=== PATIENT | female | born 1960 | race Caucasian/White ===

== ENCOUNTER 2019-01-21 11:37 | Outpatient (REF) | payer BC, SELFPAY ==
--- NOTE | 2019-01-21 11:00 | PAPFT_PTH ---
PATIENT: Shanti George LOC: [facility] U#:[id number] AGE/SX: 58/F ROOM: RE01/21/[address]: Lexi Chris : 1960 BED: DIS: 01/21/2019 SPEC #: [id number] RECD: 01/22/19 13:17 STATUS: TJ RESharyn #: [id number] VARUN: 01/21/19 11:[address]: Lexi Chris DEPT: [facility] Cytology RECD BY: Arabella Butler Tissues: 1 - CX/ENDOCX FOR PAP SMEARS Procedures: PAP THIN PREP/UVM Screening HPV DNA PROBE Comments: [id number]
== END 2019-01-21 11:57 ==
LOC: NCHCN 11:37
PROVIDERS: PCP Family Medicine; Visit Provider Family Medicine
DX: Z00.00 Encounter for general adult medical examination without abnormal findings (principal); Z12.4 Encounter for screening for malignant neoplasm of cervix; Z01.419 Encounter for gynecological examination (general) (routine) without abnormal findings; Z11.51 Encounter for screening for human papillomavirus (HPV); R87.610 Atypical squamous cells of undetermined significance on cytologic smear of cervix (ASC-US)
CPT/HCPCS: 88142; 87624

== ENCOUNTER 2019-05-02 18:46 | Outpatient (REF) | payer BC, SELFPAY ==
[2019-05-02 21:35] LABS: HGB 14.5 g/dL (12.0-15.5); Mean Corpuscular Hemoglobin 29.4 pg (27.0-33.0); Mean Corpuscular Volume 89.1 fL (80-95); Mean Platelet Volume 10.8 fL (8.0-11.0); Platelet Count 338 x1000/uL (130-400); RBC 4.94 m/cumm (4.00-5.20); RBC Distribution Width 12.7 % (11.7-14.6); White Blood Cell Count 7.25 k/cumm (4.4-10.8)
[2019-05-02 21:58] LABS: Anion Gap 7.3 mmol/L (3-11); BUN 12 mg/dL (7-18); CO2 29.7 mmol/L (21.0-32.0); CREATININE 0.62 mg/dL (0.55-1.02); Calcium 9.9 mg/dL (8.5-10.1); Chloride 104 mmol/L (98-107); Glucose 94 mg/dL (70-100); Potassium 4.4 mmol/L (3.5-5.1); Sodium 141 mmol/L (136-145); TSH (W/Ref FT4) 2.59 uIU/mL (0.36-3.74)
== END 2019-05-02 19:06 ==
LOC: NCHCN 18:46
PROVIDERS: PCP Family Medicine; Visit Provider Nurse Practitioner Family
DX: R42 Dizziness and giddiness (principal)
CPT/HCPCS: 80048; 85027; 84443

== ENCOUNTER 2019-05-09 09:30 | Outpatient (CLI) | payer BC, SELFPAY | END 2019-05-09 09:50 | PROVIDERS: PCP Family Medicine; Visit Provider Nurse Practitioner Family | DX: I49.1 Atrial premature depolarization (principal) | CPT/HCPCS: 93225 ==

== ENCOUNTER 2019-05-13 07:33 | Outpatient (CLI) | payer BC, SELFPAY ==
--- NOTE | 2019-05-13 08:25 | W.HOLTRPT ---
Date of service: 05/13/19 Time of Service: 08:25 Holter Monitor Report Holter Monitor Note: Is a 48-hour Holter monitor ordered to evaluate for PACs. ?The patient was in normal sinus rhythm for the majority of the recording time. ?The patient had no episodes of supraventricular tachycardia. ?The patient had rare (less than 1%) premature atrial contractions and no runs of more than one in a row. ?There were no episodes of ventricular tachycardia. ?There were 5 single ventricular ectopic beats. ?There were no episodes of atrial fibrillation, no pauses greater than 3 seconds and no high degree heart block.
== END 2019-05-13 07:53 ==
PROVIDERS: PCP Family Medicine; Visit Provider Family Medicine
DX: I49.1 Atrial premature depolarization (principal)
CPT/HCPCS: 93226

== ENCOUNTER 2019-08-08 10:05 | Outpatient (CLI) | payer BC, SELFPAY ==
--- NOTE | 2019-08-08 | DI.RAD_ITS ---
EXAM: XR CLAVICLE RT INDICATION: LUMP R22.9. COMPARISON: No exams were available for comparison TECHNIQUE: 2D digital imaging was performed. FINDINGS: No fracture or dislocation is seen. There is minimal spurring at the AC joint and glenoid. IMPRESSION: Negative right clavicle DATA REPOSITORY: RADIATION DOSE DELIVERED:
== END 2019-08-08 10:25 ==
PROVIDERS: PCP Family Medicine; Visit Provider Nurse Practitioner Family
DX: R22.31 Localized swelling, mass and lump, right upper limb (principal); M25.711 Osteophyte, right shoulder
CPT/HCPCS: 73000

== ENCOUNTER 2019-09-30 01:47 | Outpatient (CLI) | payer BC, SELFPAY ==
--- NOTE | 2019-09-30 | DI.MRI_ITS ---
EXAM: MR CHEST WO/W CLINICAL HISTORY: LOCALIZED SWELLING, LUMP RT CLAVICLE,R22.1 TECHNIQUE: T1 and STIR or axial, coronal and sagittal sequences and pre and post gadolinium T T1 fat -suppressed axial, coronal and sagittal sequences performed. The exam was performed with a large fi eld of view which includes the entire clavicle COMPARISON: XR CLAVICLE RT from 08/08/2019 FINDINGS: There is some fluid around the right sternoclavicular joint. The bony signal is normal. There is n o evidence of a discrete mass. There is some enhancement around the right sternoclavicular joint in the area of the fluid. Findings could be infectious or inflammatory. No adenopathy is seen. The thyroid is unremarkable. The spine is unremarkable. IMPRESSION: Fluid mainly anterior to the right sternoclavicular joint with some enhancement post gadolinium. Fin dings could be infectious or inflammatory. No mass or abnormal bony signal is seen.
[2019-09-30] MEDS: Normal Saline Flush 10 ML SYR IVP (09:11)
[2019-09-30] MEDS: Gadoterate meglumine 20 ML VIAL 11 ML IVP (09:11)
== END 2019-09-30 02:07 ==
PROVIDERS: PCP Family Medicine; Visit Provider Family Medicine
DX: R22.31 Localized swelling, mass and lump, right upper limb (principal); M25.411 Effusion, right shoulder
CPT/HCPCS: 71552

== ENCOUNTER 2020-01-16 09:00 | Outpatient (REF) | payer BC, SELFPAY ==
[2020-01-16 21:21] LABS: ALT 21 U/L (14-59); AST 18 U/L (15-37); Alkaline Phosphatase 42 U/L (46-116); Anion Gap 5.8 mmol/L (3-11); BUN 15 mg/dL (7-18); Bilirubin, Total 0.3 mg/dL (0.2-1.0); CO2 28.2 mmol/L (21.0-32.0); CREATININE 0.67 mg/dL (0.55-1.02); Calcium 9.4 mg/dL (8.5-10.1); Calculated LDL 142 mg/dL (<100); Chloride 107 mmol/L (98-107); Cholesterol 249 mg/dL (<200); Glucose 95 mg/dL (74-106); HDL Cholesterol 94 mg/dL (40-60); Potassium 5.7 mmol/L (3.5-5.1); Sodium 141 mmol/L (136-145); Total Protein 6.9 g/dL (6.4-8.2); Triglyceride 67 mg/dL (<150)
[2020-01-16 21:27] LABS: Albumin 3.9 g/dL (3.4-5.0)
== END 2020-01-16 09:20 ==
LOC: NCHCN 09:00
PROVIDERS: PCP Family Medicine; Visit Provider Family Medicine
DX: Z00.00 Encounter for general adult medical examination without abnormal findings (principal); Z13.228 Encounter for screening for other metabolic disorders; Z13.220 Encounter for screening for lipoid disorders
CPT/HCPCS: 80053; 80061

== ENCOUNTER 2020-01-23 15:00 | Outpatient (REF) | payer BC, SELFPAY ==
--- NOTE | 2020-01-23 14:15 | PAPFT_PTH ---
PATIENT: Shanti Georeg [facility] U[id number] AGE/SX: 59/F ROOM: RE01/23/[address]: Lexi Chris : 1960 BED: DIS: 01/23/2020 SPEC #: [id number] RECD: 01/24/20 13:02 STATUS: TJ REQ #: [id number] VARUN: 01/23/20 14:[address]: Lexi Chris DEPT: [facility]CLUD[facility] Cytology RECD BY: Arabella Butler Tissues: 1 - CX/ENDOCX FOR PAP SMEARS Procedures: PAP THIN PREP/UVM Screening HPV DNA PROBE Comments: [id number]
== END 2020-01-23 15:20 ==
LOC: NCHCN 15:00
PROVIDERS: PCP Family Medicine; Visit Provider Family Medicine
DX: Z12.4 Encounter for screening for malignant neoplasm of cervix (principal); Z11.51 Encounter for screening for human papillomavirus (HPV)
CPT/HCPCS: 88142; 87624

== ENCOUNTER 2021-01-21 10:06 | Outpatient (REF) | payer BC, SELFPAY ==
[2021-01-21 13:19] LABS: HCT 44.7 % (36.0-46.0); HGB 14.9 g/dL (11.2-15.7); MCHC 33.3 % (32.0-36.0); MCV 89.9 fL (80-95); MPV 10.8 fL (8.0-11.0); Platelet Count 310 10^3/uL (130-400); RBC 4.97 10^6/uL (3.93-5.22); RDW 12.4 % (11.7-14.6); RDW-SD 41.1 fL; WBC 5.05 10^3/uL (4.4-10.8)
[2021-01-21 14:11] LABS: ALT 21 U/L (14-59); AST 18 U/L (15-37); Albumin 4.2 g/dL (3.4-5.0); Alkaline Phosphatase 45 U/L (46-116); Anion Gap 7.1 mmol/L (3-11); BUN 15 mg/dL (7-18); Bilirubin, Total 0.4 mg/dL (0.2-1.0); CO2 28.9 mmol/L (21.0-32.0); CREATININE 0.7 mg/dL (0.55-1.02); Calculated LDL 141 mg/dL (<100); Chloride 106 mmol/L (98-107); Cholesterol 258 mg/dL (<200); Glucose 91 mg/dL (74-106); HDL Cholesterol 107 mg/dL (40-60); Potassium 5.4 mmol/L (3.5-5.1); Sodium 142 mmol/L (136-145); Total Protein 7.4 g/dL (6.4-8.2); Triglyceride 50 mg/dL (<150)
== END 2021-01-21 10:07 | disposition home or self-care (01) ==
LOC: NCHCN 10:06
PROVIDERS: PCP Family Medicine; Visit Provider Family Medicine
DX: Z00.00 Encounter for general adult medical examination without abnormal findings (principal); R42 Dizziness and giddiness; I73.00 Raynaud's syndrome without gangrene
CPT/HCPCS: 80053; 80061; 85027

== ENCOUNTER 2022-01-20 17:05 | Outpatient (REF) | payer BC, SELFPAY ==
[2022-01-20 21:04] LABS: Bilirubin Negative (Negative); Blood Trace-lysed (Negative); Clarity Clear (Clear); Glucose Negative (Negative); Ketones Negative (Negative); Leukocyte Esterase Trace (Negative); Nitrite Negative (Negative); Specific Gravity >= 1.030 (1.005-1.025); Urobilinogen 0.2 EU/dL (Up TO 0.2); pH 5.5 (5-8)
[2022-01-20 21:21] LABS: Bacteria Rare HPF (Negative); C & S Indicated? Yes; Casts Negative LPF (Negative); Crystals Negative HPF (Negative); Epithelial Cells Rare HPF (Negative); Mucus Negative (Negative)
== END 2022-01-20 17:06 | disposition home or self-care (01) ==
LOC: LBN 17:05
PROVIDERS: PCP Family Medicine; Visit Provider Family Medicine
DX: R30.0 Dysuria (principal)
CPT/HCPCS: 81003; 81015; 87086

== ENCOUNTER 2022-01-28 14:34 | Outpatient (REF) | payer BC, SELFPAY ==
[2022-01-28 16:16] LABS: ALT 26 U/L (14-59); AST 31 U/L (15-37); Albumin 4.3 g/dL (3.4-5.0); Alkaline Phosphatase 48 U/L (46-116); Anion Gap 8.8 mmol/L (3-11); BUN 12 mg/dL (7-18); Bilirubin, Total 0.3 mg/dL (0.2-1.0); CO2 30.2 mmol/L (21.0-32.0); CREATININE 0.6 mg/dL (0.55-1.02); Calcium 9.6 mg/dL (8.5-10.1); Calculated LDL 127 mg/dL (<100); Chloride 103 mmol/L (98-107); Cholesterol 260 mg/dL (<200); Glucose 87 mg/dL (74-106); HDL Cholesterol 104 mg/dL (40-60); Magnesium 2.2 mg/dL (1.8-2.4); Potassium 5.2 mmol/L (3.5-5.1); Sodium 142 mmol/L (136-145); TSH (W/Ref FT4) 2.43 uIU/mL (0.36-3.74); Total Protein 8.3 g/dL (6.4-8.2); Triglyceride 145 mg/dL (<150)
[2022-01-31 05:46] LABS: Vitamin D 25 Total 51.1 ng/mL (30-100)
== END 2022-01-28 14:35 | disposition home or self-care (01) ==
LOC: NCHCN 14:34
PROVIDERS: PCP Family Medicine; Visit Provider Family Medicine
DX: Z00.00 Encounter for general adult medical examination without abnormal findings (principal); F51.04 Psychophysiologic insomnia
CPT/HCPCS: 80053; 80061; 82306; 83735; 84443

== ENCOUNTER 2022-10-13 14:49 | Outpatient (CLI) | payer BC, SELFPAY ==
--- NOTE | 2022-10-13 11:10 | DI.RAD_ITS ---
Exam(s) XR CHEST 2V PA LATERAL EXAM: XR CHEST 2V PA LATERAL CLINICAL HISTORY: NEW WHEEZE,R06.2 TECHNIQUE: 2D digital imaging was performed of the chest. Two images were obtained. PA and lateral views were obtained. COMPARISON: No exams were available for comparison FINDINGS: MEDIASTINUM: Normal. HEART: Normal. PULMONARY VASCULATURE: Normal. LUNGS: Clear. PLEURAL SPACE: No pleural effusion or pneumothorax. BONE:Within normal limits for the patient's age. OTHER FINDINGS:Normal. IMPRESSION: No acute pulmonary findings. DATA REPOSITORY: RADIATION DOSE DELIVERED:
== END 2022-10-13 15:09 ==
LOC: DI 14:49
PROVIDERS: PCP Family Medicine; Visit Provider Physician Assistant Medical
DX: R06.2 Wheezing (principal)
CPT/HCPCS: 71046

== ENCOUNTER 2024-03-11 08:17 | Outpatient (REF) | payer BC, SELFPAY ==
--- NOTE | 2024-03-11 08:00 | PAPFT_PTH ---
PATIENT: Shanti George LOC: [facility] U#:[id number] AGE/SX: 63/F ROOM: RE03/11/[address]: Bety Valdez DO : 1960 BED: DIS: 03/11/2024 SPEC #: [id number] RECD: 03/11/24 13:24 STATUS: TJ REQ #: [id number] VARUN: 03/11/24 08:[address]: Bety Valdez DEPT: [facility] Cytology RECD BY: Arabella Butler ENTERED: 03/11/24 13:24 SP TYPE: PAPFT OTHR DR: Lexi Chris Tissues: 1 - CX/ENDOCX FOR PAP SMEARS Procedures: PAP THIN PREP/[facility] Screening HPV DNA PROBE Comments: [id number] (HPV 16 & 18/45)
== END 2024-03-11 08:18 | disposition home or self-care (01) ==
LOC: LBN 08:17
PROVIDERS: PCP Family Medicine; Visit Provider Obstetrics & Gynecology
DX: Z01.419 Encounter for gynecological examination (general) (routine) without abnormal findings (principal); N95.2 Postmenopausal atrophic vaginitis
CPT/HCPCS: 88142; 87624

== ENCOUNTER 2024-03-14 02:24 | Outpatient (CLI) | payer BC, SELFPAY ==
--- NOTE | 2024-03-14 06:15 | DI.DEXA_ITS ---
Exam(s) XR DEXA BONE DENSITY W/WO ADRIAN EXAM: XR DEXA BONE DENSITY W/WO ADRIAN CLINICAL HISTORY: menopausal and female climacteric states,evaluate bone density,n95.1 TECHNIQUE: COMPARISON: No exams were available for comparison FINDINGS: Lateral Spine Image: Unremarkable. No compression deformities identified. Left hip: Total T-Score: -0.3 Total Z-Score: 0.8 T- and Z-scores: Within normal limits. Lumbar Spine: Total T-Score: -1.4 Total Z-Score: 0.2 T- and Z-scores: Findings are consistent with osteopenia. There is no evidence of osteoporosis. IMPRESSION: No evidence of osteoporosis.
== END 2024-03-14 02:44 ==
LOC: DI 02:24
PROVIDERS: PCP Family Medicine; Visit Provider Obstetrics & Gynecology
DX: N95.1 Menopausal and female climacteric states (principal); Z13.820 Encounter for screening for osteoporosis
CPT/HCPCS: 77080

== ENCOUNTER 2024-03-14 02:57 | Outpatient (CLI) | payer BC, SELFPAY ==
[2024-03-14 07:54] LABS: Abs Immature Grans 0.01 10^3/uL (0.0-0.06); Absolute Basophil Count 0.07 10^3/uL (0.0-0.2); Absolute Eosinophil Count 0.26 10^3/uL (0.0-0.7); Absolute Lymphocyte Count 1.79 10^3/uL (1.2-3.4); Absolute Monocyte Count 0.44 10^3/uL (0.1-0.8); Absolute Neutrophil Count 2.77 10^3/uL (1.2-6.7); Basophils % 1.3 %; Eosinophils % 4.9 %; HCT 42.9 % (36.0-46.0); HGB 14.3 g/dL (11.2-15.7); Immature Grans % 0.2 %; Lymphocytes % 33.5 %; MCH 29.9 pg (27.0-33.0); MCHC 33.3 % (32.0-36.0); MCV 90 fL (80-95); MPV 10.6 fL (8.0-11.0); Monocytes % 8.2 %; Neutrophils % 51.9 %; Platelet Count 279 10^3/uL (130-400); RBC 4.79 10^6/uL (3.93-5.22); RDW 12.4 % (11.7-14.6); RDW-SD 40.9 fL; WBC 5.34 10^3/uL (4.4-10.8)
[2024-03-14 08:38] LABS: ALT 23 U/L (14-59); AST 18 U/L (15-37); Albumin 3.9 g/dL (3.4-5.0); Alkaline Phosphatase 49 U/L (46-116); Anion Gap 5.7 mmol/L (3-11); BUN 16 mg/dL (7-18); CO2 30.3 mmol/L (21.0-32.0); CREATININE 0.7 mg/dL (0.55-1.02); Calcium 9.3 mg/dL (8.5-10.1); Calculated LDL 122 mg/dL (<100); Chloride 105 mmol/L (98-107); Cholesterol 251 mg/dL (<200); Estimated GFR 97.12 (mL/min/1.73m2); Glucose 93 mg/dL (74-106); HDL Cholesterol 106 mg/dL (40-60); Potassium 4.4 mmol/L (3.5-5.1); Sodium 141 mmol/L (136-145); Total Protein 7.4 g/dL (6.4-8.2); Triglyceride 117 mg/dL (<150)
== END 2024-03-14 02:58 | disposition home or self-care (01) ==
LOC: LBO 02:58
PROVIDERS: PCP Family Medicine; Visit Provider Obstetrics & Gynecology
DX: N95.1 Menopausal and female climacteric states (principal); L65.9 Nonscarring hair loss, unspecified
CPT/HCPCS: 36415; 80053; 80061; 84443; 85025

== ENCOUNTER 2025-01-01 11:29 | Outpatient (CLI) | payer BC, SELFPAY ==
--- NOTE | 2025-01-01 11:00 | DI.RAD_ITS ---
Exam(s) XR ELBOW RT COMPLETE EXAM: XR ELBOW RT COMPLETE CLINICAL HISTORY: pain. TECHNIQUE: 2D digital imaging was performed of the left elbow. Three images were obtained. AP, lateral and radiocapitellar views were obtained. COMPARISON: No exams were available for comparison FINDINGS: BONES: No acute fracture is present. No bony destructive lesion is seen. JOINTS: The elbow is normally aligned. No joint effusion is seen. SOFT TISSUE: There is a well corticated osseous density adjacent to the lateral epicondyle which is chronic. IMPRESSION: No acute abnormality. DATA REPOSITORY: RADIATION DOSE DELIVERED:
== END 2025-01-01 11:30 | disposition home or self-care (01) ==
LOC: DIORS 11:29
PROVIDERS: PCP Family Medicine; Visit Provider Physician Assistant
DX: M25.521 Pain in right elbow (principal)
CPT/HCPCS: 73080

== ENCOUNTER 2025-04-15 15:06 | Outpatient (CLI) | payer BC, SELFPAY ==
[2025-04-15 16:11] LABS: TSH (W/Ref FT4) 3.76 uIU/mL (0.36-3.74)
== END 2025-04-15 15:07 | disposition home or self-care (01) ==
LOC: LBO 15:07
PROVIDERS: PCP Family Medicine; Visit Provider Obstetrics & Gynecology
DX: L65.9 Nonscarring hair loss, unspecified (principal)
CPT/HCPCS: 36415; 84439; 84443

== ENCOUNTER → 2025-05-02 03:08 | Outpatient (CLI) | payer BC, SELFPAY ==
--- NOTE | 2025-05-02 07:30 | DI.MAMMO_ITS ---
Exam(s) MAMMO SCREENING EXAM: MAMMO SCREENING CLINICAL HISTORY: screening,Z12.39. TECHNIQUE: Bilateral full field digital CC and MLO mammographic images were obtained with 3D tomosynthesis and utilizing computer aided detection (CAD). COMPARISON: Prior outside mammograms were reviewed. FINDINGS: Fibroglandular tissue pattern is again noted be heterogeneously dense. There are no new radiograph findings in left breast. In the right breast there is again noted a biopsy marker device located anteriorly, located just anterior to a group of microcalcifications which continues to appear stable from prior mammograms. There are no obvious new spiculated masses nor new malignant-appearing microcalcification groups in either breast. There is no significant architectural distortion nor skin thickening-retraction. IMPRESSION: Stable benign-appearing findings. No radiographic evidence of malignancy. BI-RADS Category 2 - Benign Findings Breast Density - Category C - The breast are heterogeneously dense, which may obscure small masses. Breast density Category C or D implies that the patient has dense breast tissue. Dense breast tissue can make it harder to find cancer on a mammogram. Dense breast tissue is also associated with an increased risk of breast cancer. This information about the result of the mammogram report was provided to the patient to raise their awareness. Use this report when you speak with the patient about their risks for breast cancer, which includes their family history. At that time, you may recommend additional screening tests (Ultrasound or MRI) as these tests may add significant information. A negative radiographic report should not delay biopsy if a dominant or clinically suspicious mass is present. Up to ten percent of cancers are not identified on mammography. A negative report may reinforce clinical impression. Adenosis and dense breasts may obscure an underlying neoplasm. False positive reports average 6 to 10%. Patient will receive a letter notifying them of these results.
== END ==
LOC: DI 03:08
PROVIDERS: PCP Family Medicine; Visit Provider Obstetrics & Gynecology
DX: Z12.31 Encounter for screening mammogram for malignant neoplasm of breast (principal); R92.333 Mammographic heterogeneous density, bilateral breasts
CPT/HCPCS: 77063; 77067

== ENCOUNTER 2025-06-02 14:48 | Outpatient (CLI) | payer BC, SELFPAY ==
[2025-06-03 00:25] LABS: HBs Antibody, Quant 24.8 mIU/mL (See Note); Hepatitis B Surface Ab Positive (See Note)
[2025-06-03 09:33] LABS: Rubella IgG Ab (UVM) Positive (See Note)
== END 2025-06-02 14:49 | disposition home or self-care (01) ==
LOC: LBO 14:48
PROVIDERS: PCP Family Medicine; Visit Provider Family Medicine
DX: Z02.1 Encounter for pre-employment examination (principal)
CPT/HCPCS: 36415; 86706; 86787; 87340; 86735; 86762; 86765